=== PATIENT | male | born 2000 | race African-American/Black ===

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

== ENCOUNTER 2020-10-21 22:33 | Emergency (ER) | payer SELFPAY ==
[2020-10-21] MEDS ORDERED: predniSONE 20 MG TAB ONE (23:25)
[2020-10-22] MEDS ORDERED: Ondansetron ODT 4 MG TAB ONE (00:32)
[2020-10-22 19:12] LABS: SARS-CoV-2 PCR by NAA DETECTED (NotDetected)
== END 2020-10-22 00:40 | disposition home or self-care (01) ==
LOC: MADERS 22:33
DX: U07.1 COVID-19 (principal)
CPT/HCPCS: 71045; J7512; Q0162; U0003; U0005

== ENCOUNTER 2020-11-26 21:52 | Emergency (ER) | payer SELFPAY ==
[2020-11-26] MEDS ORDERED: Iopamidol 370 76% 100 ML VIAL IV ONE (21:53)
[2020-11-26] MEDS ORDERED: diphenhydrAMINE 50 MG/ML VIAL ONE (22:28)
[2020-11-26] MEDS ORDERED: Lactated Ringer's 1,000 ML ONE (22:29)
[2020-11-26] MEDS ORDERED: Metoclopramide HCl 10 MG/2 ML VIAL ONE (22:29)
[2020-11-26 23:02] LABS: #Basophils 0.3 thou/uL (0.0-0.2); #Eosinphils 0.1 thou/uL (0.0-0.7); #Lymphocytes 1.3 thou/uL (1.20-3.40); #Monocytes 1.4 thou/uL (0.11-0.59); #Neutrophils 9.4 thou/uL (1.40-6.50); %Basophils 2.8 % (0.0-1.0); %Eosinophils 0.5 % (0.0-10.0); %Lymphocytes 10.3 % (21.0-51.0); %Monocytes 10.9 % (0.0-10.0); %Neutrophils 75.5 % (42.0-75.0); Hemoglobin 14.9 g/dL (14.0-18.0); Mean Corpuscular HGB CONC 34.4 g/dL (32.0-36.0); Mean Corpuscular Hemoglobin 31.3 pg (27.0-31.0); Mean Platelet Volume 7.7 fL (7.4-10.4); Platelet Count 206 thou/uL (130-400); RBC Distribution Width 11.8 % (11.5-14.5); Red Blood Cell (RBC) Count 4.75 mill/uL (4.70-6.10); White Blood Cell (WBC) Count 12.5 thou/uL (4.8-10.8)
[2020-11-26 23:16] LABS: ALT (SGPT) 12 U/L (8-55); AST (SGOT) 14 U/L (5-34); Albumin 3.8 g/dL (3.5-5.0); Alkaline Phosphatase 60 U/L (40-110); Anion Gap 14 mmol/L (10-20); BUN (Urea Nitrogen) 6 mg/dL (8.9-20.6); Bilirubin, Total 1.1 mg/dL (0.2-1.2); Calc. Creatinine Clearance 0 mL/min (70-130); Calcium 9.5 mg/dL (7.8-10.44); Carbon Dioxide 24 mmol/L (22-29); Chloride 106 mmol/L (98-107); Globulin 3.1 g/dL (2.4-3.5); Glucose 118 mg/dL (70-105); Potassium 3.4 mmol/L (3.5-5.1); Protein, Total 6.9 g/dL (6.0-8.3); Sodium 141 mmol/L (136-145)
== END 2020-11-27 00:34 | disposition home or self-care (01) ==
LOC: MADERS 21:52
DX: J01.00 Acute maxillary sinusitis, unspecified (principal)
CPT/HCPCS: 70450; 70487; 80053; 85025; 96374; 96375; J1200; J2765; J7120; Q9967

== ENCOUNTER 2020-12-02 01:05 | Emergency (ER) | payer SELFPAY, OTHER ==
[2020-12-02] MEDS ORDERED: Lidocaine 1% w/Epinephrine 1:100K 20 ML VIAL ONE (01:20)
== END 2020-12-02 02:00 | disposition home or self-care (01) ==
LOC: MADERS 01:05
DX: S01.81XA Laceration without foreign body of other part of head, initial encounter (principal); Y04.2XXA Assault by strike against or bumped into by another person, initial encounter
CPT/HCPCS: 12013

== ENCOUNTER 2022-01-08 06:52 | Emergency (ER) | payer SELFPAY ==
[2022-01-08] MEDS ORDERED: Morphine 2 MG/ML VIAL ONE (06:56)
[2022-01-08] MEDS ORDERED: Sodium Chloride 0.9% 1,000 ML BAG ONE (07:03)
[2022-01-08] MEDS ORDERED: Ondansetron PF 4 MG/2 ML Vial ONE (07:04)
[2022-01-08] MEDS ORDERED: Boostrix 0.5 ML (Tdap) VIAL (>/=7 yrs of age) ONE (07:09)
[2022-01-08] MEDS ORDERED: CEFAZOLIN 1 GM VIAL ONE ×2 (07:11→07:12)
[2022-01-08] MEDS ORDERED: Sodium Chloride 0.9% 200 ML ONE (07:11)
[2022-01-08 07:15] LABS: INR-International Normal Ratio 1.3; Prothrombin Time 16.4 sec (12.0-14.7)
[2022-01-08 07:16] LABS: Eosinophils 1 % (0-10); Hemoglobin 17.5 g/dL (14.0-18.0); Lymphocytes 56 % (21-51); MDiff Complete? YES; Mean Corpuscular HGB CONC 33.7 g/dL (32.0-36.0); Mean Corpuscular Hemoglobin 31.2 pg (27.0-31.0); Mean Corpuscular Volume 92.4 fl (78.0-98.0); Mean Platelet Volume 7.2 fL (7.4-10.4); Monocytes 6 % (0-10); Neutrophil 37 % (42-75); Platelet Count 222 10x3/uL (130-400); RBC Distribution Width 11.4 % (11.5-14.5); Red Blood Cell (RBC) Count 5.61 mill/uL (4.70-6.10); White Blood Cell (WBC) Count 5.8 10x3/uL (4.8-10.8)
[2022-01-08 07:25] LABS: ALT (SGPT) 21 U/L (8-55); AST (SGOT) 17 U/L (5-34); Albumin 4.1 g/dL (3.5-5.0); Alkaline Phosphatase 52 U/L (40-110); Anion Gap 19 mmol/L (10-20); BUN (Urea Nitrogen) 7 mg/dL (8.9-20.6); Bilirubin, Total 0.9 mg/dL (0.2-1.2); Calc. Creatinine Clearance 0 mL/min (70-130); Calcium 9.4 mg/dL (7.8-10.44); Carbon Dioxide 19 mmol/L (22-29); Chloride 106 mmol/L (98-107); Estimated GFR 95; Globulin 2.8 g/dL (2.4-3.5); Glucose 114 mg/dL (70-105); Potassium 3.4 mmol/L (3.5-5.1); Protein, Total 6.9 g/dL (6.0-8.3); Sodium 141 mmol/L (136-145)
[2022-01-08] MEDS ORDERED: Morphine 4 MG/ML VIAL ONE (07:29)
[2022-01-08] MEDS ORDERED: Iopamidol 370 76% 100 ML VIAL ONE (09:23)
== END 2022-01-08 07:37 | disposition short-term general hospital (02) ==
LOC: MADERS 06:52
DX: S31.030A Puncture wound without foreign body of lower back and pelvis without penetration into retroperitoneum, initial encounter (principal); W34.00XA Accidental discharge from unspecified firearms or gun, initial encounter
CPT/HCPCS: 36415; 71045; 72170; 74018; 74177; 80053; 85025; 85610; 90471; 90715; 96365; 96375; 96376; J0690; J2270; J2405; J3490; J7050; Q9967

== ENCOUNTER 2022-03-16 07:27 | Emergency (ER) | payer BC, OTHER, SELFPAY | END 2022-03-16 07:47 | disposition left against medical advice (07) | LOC: MADERS 07:27 | DX: Z53.21 Procedure and treatment not carried out due to patient leaving prior to being seen by health care provider (principal) ==